=== PATIENT | male | born 1950 ===

== ENCOUNTER 2018-03-28 13:22 | Observation (INO) | payer SELFPAY ==
[2018-03-28 13:40] LABS: #Eosinphils 0.1 thou/uL (0.0-0.7); #Lymphocytes 1.5 thou/uL (1.20-3.40); #Monocytes 0.5 thou/uL (0.11-0.59); #Neutrophils 7.2 thou/uL (1.40-6.50); %Basophils 0.2 % (0.0-1.0); %Eosinophils 1.5 % (0.0-10.0); %Lymphocytes 16.3 % (21.0-51.0); %Monocytes 5.8 % (0.0-10.0); %Neutrophils 76.3 % (42.0-75.0); Mean Corpuscular HGB CONC 33.1 g/dL (32.0-36.0); Mean Corpuscular Hemoglobin 29.2 pg (27.0-31.0); Mean Corpuscular Volume 88.1 fL (78.0-98.0); Mean Platelet Volume 8.5 fL (7.4-10.4); Platelet Count 158 thou/uL (130-400); RBC Distribution Width 12.4 % (11.5-14.5); Red Blood Cell (RBC) Count 5.14 mill/uL (4.70-6.10); White Blood Cell (WBC) Count 9.4 thou/uL (4.8-10.8)
[2018-03-28 13:59] LABS: ALT (SGPT) 12 U/L (8-55); AST (SGOT) 18 U/L (5-34); Albumin 4.1 g/dL (3.4-4.8); Alkaline Phosphatase 75 U/L (40-150); Anion Gap 14 mmol/L (10-20); BUN (Urea Nitrogen) 18 mg/dL (8.4-25.7); Bilirubin, Total 0.3 mg/dL (0.2-1.2); Calc. Creatinine Clearance 0 mL/min (70-130); Calcium 9.2 mg/dL (7.8-10.44); Carbon Dioxide 23 mmol/L (23-31); Chloride 107 mmol/L (98-107); Estimated GFR-MDRD 76; Globulin 3.3 g/dL (2.4-3.5); Glucose 105 mg/dL (80-115); Potassium 4.6 mmol/L (3.5-5.1); Protein, Total 7.4 g/dL (5.8-8.1); Sodium 139 mmol/L (136-145)
[2018-03-28 14:00] LABS: INR-International Normal Ratio 0.9; PTT 32.7 SEC (22.9-36.1); Prothrombin Time 12.7 SEC (12.0-14.7)
--- NOTE | 2018-03-28 14:10 | CT ---
CERVICAL SPINE CT NONCONTRAST: Date: 03/28/18 INDICATON: Post-traumatic neck pain. FINDINGS: There is mild multilevel degenerative change of the cervical spine. No evidence of compression fractu re or subluxation. No craniocervical distraction injury. There are a few scattered foci of air densit y likely relating to degenerative process within the cervical spine. IMPRESSION: No acute fracture or subluxation of the cervical spine. Notification of results placed at 1350 hours on 03/28/18. CODE CR. POS: [facility]
--- NOTE | 2018-03-28 14:11 | RAD ---
CHEST 1 VIEW: Date: 03/28/18 HISTORY: Fall. Chest injury. FINDINGS: Cardiac silhouette is magnified by projection. Shallow inspiration accentuates pulmonary markings. Me diastinum is midline. No lobar consolidation or evidence of pneumothorax. professor of violin leads overl ie the chest. Metallic anchor overlies the right acromiohumeral space. IMPRESSION: 1. No active cardiopulmonary abnormalities are demonstrated. 2. Possible displacement of an operative screw of the right shoulder. POS: [facility]
--- NOTE | 2018-03-28 14:14 | CT ---
CT HEAD NONCONTRAST: Date: 03/28/18 INDICATION: Post-traumatic injury, pain. FINDINGS: There is a mild degree of hyperdensity involving the cerebellar tentorium bilaterally. No mass effect or midline shift. Ventricular system is normal in size. There is mild chronic ischemic disease of th e cerebral white matter. There is scattered paranasal sinus opacification. IMPRESSION: Subtle hyperdensity along the cerebellar tentorium, which indicates a small volume of subdural hemorr miri. Telephone call to patient's ER care provided, Tati Santos, placed at 1340 hours on 03/28/18. CODE CR. POS: [facility]
[2018-03-28] MEDS ORDERED: Acetaminophen 500 MG TAB PO ONE (16:19)
[2018-03-28] MEDS ORDERED: Dextrose 50% Abboject 50 ML SYRINGE SLOW IVP PRN (16:19)
[2018-03-28] MEDS ORDERED: hydrALAZINE 20 MG/ML VIAL SLOW IVP PRN (16:19)
[2018-03-28] MEDS ORDERED: traMADol HCl 50 MG TAB PO PRN ×2 (16:19)
[2018-03-28] MEDS ORDERED: Dextrose 5% in Water 1,000 ML IV PRN (16:19)
[2018-03-28] MEDS ORDERED: Ondansetron PF 4 MG/2 ML Vial IVP PRN (16:19)
[2018-03-28] MEDS ORDERED: Morphine 4 MG/ML VIAL SLOW IVP PRN (17:00)
[2018-03-28 17:21] VITALS: BMI 30.1
--- NOTE | 2018-03-28 18:13 | HP ---
REFERRING PHYSICIAN: Dr. Tati Santos. TRAUMA SURGEON: Dr. Alcon Jackson. CONSULTING PHYSICIAN: Dr. Cates, neurosurgery. 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 He did not realize how far along the truck he was and stepped off the back. He reported striking the back of his head with no loss of consciousness and no anticoagulation use. There was no bystanders around at that time, and the patient reported getting back up and resuming his job. A co-worker came by and noticed that he had blood coming from his nose and asked the patient to go inside to report the incident to management. He arrived via EMS as a level 2 activation and complained of a headache on arrival. He received a CT of the head and C-spine, as well as a chest x-ray on evaluation by the emergency department. He also did receive blood work and an EKG. REVIEW OF SYSTEMS: All additional 10-point review of systems is negative except as indicated above. PAST MEDICAL HISTORY: None. PAST SURGICAL HISTORY: Right-sided rotator cuff repair with no residual deficits. SOCIAL HISTORY: The patient denies tobacco, alcohol, or drug abuse. MEDICATIONS: None. ALLERGIES: NO KNOWN DRUG ALLERGIES. PHYSICAL EXAMINATION: VITAL SIGNS: Temperature 97.6, pulse 76, respirations 16, oxygen saturation 95 % on room air, blood pressure 138/80. PRIMARY SURVEY: Airway intact. Adequate breath sounds bilaterally. 2+ distal pulses palpable and radial femoral and DP/PT pulses bilaterally. GCS 15, gross motor and sensation intact. No lacerations or bruises noted. Small amount of dry blood in right nares. SECONDARY SURVEY: HEAD: Normocephalic, atraumatic, no palpable skull deformities. Tenderness with a small hematoma to the right posterior scalp. EYES: Pupils 3 to 2 and equal bilaterally, pupils equal, round, react to light, tracking. ENT: No hemotympanum, small amount of dried blood in right nares, no septal hematoma, midface is stable to manipulation, no blood in the oropharynx, dentures in place without any signs of oral trauma, no anterior neck injury/crepitus/ trauma. C-SPINE: No step-offs or deformities, nontender, C-collar not in place. CHEST: Nontender, no crepitus, no abrasions/ecchymosis. Equal chest rise and fall. ABDOMEN: Soft, nontender, nondistended. PELVIS: Stable to palpation, nontender, no abrasions or ecchymosis. RECTAL: Deferred. GENITOURINARY: Deferred. EXTREMITIES: No gross deformities, no abrasions/ecchymosis noted, 2+ radial/femoral/DP/PT pulses present bilaterally. BACK/SPINE: No step-offs/deformities or tenderness to palpation of the thoracic/lumbar spine, no abrasions/ecchymosis noted. NEURO: 5/5 manager branch strength in bilateral tattooer, plantar flexion and dorsal flexion. Grossly normal sensation x4 extremities. LABORATORY FINDINGS: White blood cell count 9.4, hemoglobin 15.0, hematocrit 45.3, platelets 158. INR 0.9. Sodium 139, potassium 4.6, chloride 107, carbon dioxide 23, BUN 18, creatinine 0.99. DIAGNOSTIC FINDINGS: CT of the head demonstrates a subtle hyperdensity along the cerebellar tentorium, which indicates a small volume of subdural hematoma. CT of the C-spine demonstrated acute fracture subluxation of the C-spine. Chest x-ray demonstrated no active cardiopulmonary abnormalities are demonstrated. Possible displacement of an operative screw of the right shoulder. ECG demonstrated rate of [address] segment changes or ectopy. ASSESSMENT: 1. Status post mechanical fall from bed of truck. 2. Cerebellar subdural hematoma. 3. Posttraumatic pain. PLAN: Neurosurgery was consulted, who agreed with observation status and neuro assessments. They did not recommend a repeat head CT unless clinical neurological changes present. He will be admitted to observation with q.2 hours neuro checks , head of bed elevated to 30 degree, and goal SBP<160 mmHg. We will give a regular diet as well as pain control with Tylenol and tramadol. Hold chemo-DVT prophylaxis at this time. Will have a walking program, see thepatient tomorrow and evaluate for safety of discharge. The patient was discussed with Dr. Jackson. Job ID: [id number] [facility]
[2018-03-28] MEDS: Famotidine 20 MG TAB PO SCH (21:07)
[2018-03-28] MEDS: Senokot S 8.6-50 MG TAB PO SCH (21:07)
[2018-03-28 22:19] LABS: Amphetamine Not Detected (NotDetected); Barbiturates Screen Not Detected (NotDetected); Benzodiazepine Screen Not Detected (NotDetected); Cocaine Metabolite Screen Not Detected (NotDetected); Medtox Control Line Valid? VALID (VALID); Medtox Reader # READER 1; Methadone Not Detected (NotDetected); Methamphetamine Not Detected (NotDetected); Opiate Screen Not Detected (NotDetected); Oxycodone Screen Not Detected (NotDetected); Phencyclidine (PCP) Not Detected (NotDetected); THC/Cannabinoid Screen Not Detected (NotDetected); Tricyclic Screen Not Detected (NotDetected)
[2018-03-29 07:16] LABS: #Eosinphils 0.2 thou/uL (0.0-0.7); #Lymphocytes 2.3 thou/uL (1.20-3.40); #Monocytes 0.4 thou/uL (0.11-0.59); #Neutrophils 4.7 thou/uL (1.40-6.50); %Basophils 0.2 % (0.0-1.0); %Eosinophils 2.7 % (0.0-10.0); %Lymphocytes 29.8 % (21.0-51.0); %Monocytes 5.6 % (0.0-10.0); %Neutrophils 61.7 % (42.0-75.0); Hemoglobin 14.4 g/dL (14.0-18.0); Mean Corpuscular HGB CONC 33.5 g/dL (32.0-36.0); Mean Corpuscular Hemoglobin 29.6 pg (27.0-31.0); Mean Corpuscular Volume 88.3 fL (78.0-98.0); Mean Platelet Volume 8.7 fL (7.4-10.4); Platelet Count 157 thou/uL (130-400); RBC Distribution Width 12.6 % (11.5-14.5); Red Blood Cell (RBC) Count 4.87 mill/uL (4.70-6.10); White Blood Cell (WBC) Count 7.6 thou/uL (4.8-10.8)
[2018-03-29 07:41] LABS: Anion Gap 11 mmol/L (10-20); BUN (Urea Nitrogen) 16 mg/dL (8.4-25.7); Calc. Creatinine Clearance 94 mL/min (70-130); Calcium 8.9 mg/dL (7.8-10.44); Carbon Dioxide 25 mmol/L (23-31); Chloride 106 mmol/L (98-107); Estimated GFR-MDRD 77; Glucose 93 mg/dL (80-115); Magnesium 2.3 mg/dL (1.6-2.6); Phosphorus 2.8 mg/dL (2.3-4.7); Potassium 4.1 mmol/L (3.5-5.1); Sodium 138 mmol/L (136-145)
[2018-03-29] MEDS: Famotidine 20 MG TAB PO SCH (07:49)
[2018-03-29] MEDS: Senokot S 8.6-50 MG TAB PO SCH (07:50)
--- NOTE | 2018-03-29 08:44 | HP ---
CHIEF COMPLAINT: Fall from truck. 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 He was wearing a hard hat and hit the back of his head. He did not have any loss of consciousness, but he felt disoriented and dizzy. He kept working and bystanders noticed he had blood coming from his nose and called EMS. He says that he feels fine now. He did have some nausea after it happened, but that is resolved. His vision is okay. No tingling. No neck pain. No other injury. PAST MEDICAL HISTORY: Otherwise healthy. PAST SURGERIES: He had a rotator cuff surgery. MEDICATIONS: None. 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 No tobacco. No alcohol. FAMILY HISTORY: Noncontributory. ALLERGIES: NO KNOWN DRUG ALLERGIES. PHYSICAL EXAMINATION: VITAL SIGNS: Temperature 98.3, pulse 74, blood pressure 125/80. GENERAL: He is awake, alert. GCS 15. HEENT: He has about 5 cm x 5 cm x 1 cm hematoma right occipital region. No laceration or blood. The rest of the scalp are unremarkable. He has pupils equal, round, and reactive. Extraocular motor intact. Pharynx is clear. Facial bones are intact. NECK: Supple. No tenderness. Normal carotids. Midline trachea. CHEST: Nontender. LUNGS: Clear. HEART: Regular rate and rhythm. ABDOMEN: Soft, nondistended, and nontender. PELVIS: Stable. EXTREMITIES: Full range of motion. Good pulses. BACK: His back is nontender. LABORATORY DATA: His white count 7.6, H and H 14 and 42, platelet count 157. Electrolytes fine. Toxicology panel negative. INR 0.9. CT shows a very small volume subdural hematoma. Chest x-ray unremarkable. ASSESSMENT: Small subdural hematoma, neurologically intact, stable. PLAN: Per Neurosurgery. Job ID: [id number]
[2018-03-29] MEDS ORDERED: Polyethylene Glycol 3350 17 GM Packet PO SCH (09:00)
[2018-03-29 12:10] VITALS: BP 125/78; TEMP 97.3
--- NOTE | 2018-03-29 14:58 | DIS ---
DATE OF ADMISSION: 03/28/2018 DATE OF DISCHARGE: 03/29/2018 ADMISSION DIAGNOSES: 1. Status post fall from 5 feet. 2. Cerebellar subdural hematoma. DISCHARGE DIAGNOSES: 1. Status post mechanical fall from 5 feet. 2. Cerebellar subdural hematoma. CONSULTING PHYSICIAN: Candido Cates MD, Neurosurgery. PROCEDURES: None. 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 He did not lose consciousness and is not taking any anticoagulation. He was a level 2 activation and was seen in the emergency department and received a CT of the head and C-spine, which demonstrated a subdural hematoma in the cerebellar region. Dr. Cates with Neurosurgery was consulted, who recommended no repeat head CT and no followup unless the patient has concussive symptoms. The patient was admitted for observation with q.2 hours neuro checks and blood pressure monitoring. The next day, the patient denied any nausea, vomiting, lightheadedness, dizziness, difficulty concentrating, confusion, and photophobia. The patient was advised that he was safe for discharge, which should be with family for the next 48 hours and to continue with activity as tolerated. He was also advised not to return to work if he was having any concussive type symptoms as this may affect him be able to safely complete his job without injuring himself or other people. DISCHARGE DISPOSITION: Home. DISCHARGE CONDITION: Satisfactory. PHYSICAL EXAMINATION: VITAL SIGNS: Temperature was 98.3, pulse 74, respirations 18, oxygen saturation 91% on room air, and blood pressure 125/80. GENERAL: Alert and well-appearing middle-aged male, sitting up at edge of bed. NEURO: GCS is 15. No focal neurological deficits. Alert and oriented x3. Gross motor and sensation intact. Pupils are equal, round, and reactive to light. HEENT: Head; small cephalhematoma to right posterior scalp with no bleeding noted. Otherwise, atraumatic. PULMONARY: No signs of acute distress. Equal chest rise and fall. Lung webster are clear bilaterally. HEART: Regular rate and rhythm. No murmurs, gallops, or rubs. GASTROINTESTINAL: Abdomen is soft, nontender, and nondistended with positive bowel sounds. EXTREMITIES: Motor and sensation intact. 2+ pulses present in all 4 extremities. No swelling noted. DISCHARGE INSTRUCTIONS: The patient was discharged to home with the assistance of his family for additional care. He does not need to follow up with Trauma Clinic. He was recommended to follow up with Dr. Cates with Neurosurgery if he has persistent concussive symptoms. ACTIVITY: As tolerated. DIET: Normal regular diet. DISCHARGE MEDICATIONS: The patient was not discharged with any medication and was recommended to take Tylenol [id number] for pain. FOLLOWUP APPOINTMENTS: No formal followup needed with Trauma Surgery. The patient can follow up with Dr. Cates, Neurosurgery, as needed if concussive symptoms persist. This is merely a summary of the patient's hospitalization. For full details, please see his medical record in its entirety. Job ID: [id number] MTDD
--- NOTE | 2018-04-05 19:24 | EKG ---
Test Reason : [id number] Blood Pressure : / mmHG Vent. Rate : 080 BPM Atrial Rate : 080 BPM P-R Int : 172 ms QRS Dur : 090 ms QT Int : 366 ms P-R-T Axes : 049 -04 008 degrees QTc Int : 422 ms Normal sinus rhythm Normal ECG Confirmed by AMANDA POTTER DO ([id number]), commercial production editor MIRNA BOWERS ([id number]) on 04/05/2018 7:23:37 PM Referred By: Confirmed By:AMANDA POTTER DO
== END 2018-03-29 12:35 | disposition home or self-care (01) ==
LOC: ERS 13:22 → SURG A 15:21
PROVIDERS: ADMIT Surgery; ATTEND Surgery
DX: S06.370A Contusion, laceration, and hemorrhage of cerebellum without loss of consciousness, initial encounter (principal); G89.11 Acute pain due to trauma; W17.89XA Other fall from one level to another, initial encounter; Y99.0 Civilian activity done for income or pay
CPT/HCPCS: 36415; 36416; 70450; 71045; 72125; 80048; 80053; 80306; 83735; 84100; 84484; 85025; 85610; 85730; 93005; G0378; G0390